=== PATIENT | male | born 2000 | race Caucasian/White ===

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

== ENCOUNTER 2019-04-07 19:48 | Emergency (ER) | payer OTHER ==
[~2019-04-07] VITALS: Ht 177.8 cm; Wt 83.5 kg
[2019-04-07 19:50] VITALS: Ht 177.8 cm; Wt 83.5 kg
[2019-04-07 20:43] LABS: CALCIUM 8.9 mg/dL (8.5-10.1); CHLORIDE SERUM 103 mmol/L (98-107); CREATININE SERUM 0.8 mg/dL (0.7-1.3); GFR1 > 60 mL/min; GLUCOSE SERUM 109 mg/dL (74-106); PLATELET COUNT 224 x10^3mcL (130-400); POTASSIUM SERUM 3.8 mmol/L (3.5-5.1); RED CELL DISTRIBUTION WIDTH 12.9 % (11.5-14.5); SODIUM SERUM 137 mmol/L (136-145)
[2019-04-07 20:48] LABS: ALBUMIN 4.1 g/dL (3.4-5.0); ALKALINE PHOSPHATASE 81 U/L (46-116); ALT/SGPT 20 U/L (16-63); AST/SGOT 20 U/L (15-37); BILIRUBIN TOTAL 0.7 mg/dL (0.20-1.00); LIPASE 86 IU/L (73-393); TOTAL PROTEIN, SERUM 7.9 g/dL (6.4-8.2)
[2019-04-07 21:29] VITALS: BP 148/91
== END 2019-04-07 21:29 | disposition home or self-care (01) ==
LOC: ED 19:48
PROVIDERS: Emergency Medicine
DX: K29.70 Gastritis, unspecified, without bleeding (principal)
CPT/HCPCS: 36415

== ENCOUNTER 2019-05-15 11:39 | Emergency (ER) | payer SELFPAY ==
[~2019-05-15] VITALS: Ht 177.8 cm; Wt 82.6 kg
[2019-05-15 12:05] VITALS: Ht 177.8 cm; Wt 82.6 kg
[2019-05-15 13:42] VITALS: BP 142/85
== END 2019-05-15 13:42 | disposition home or self-care (01) ==
LOC: ED 11:39
DX: L02.415 Cutaneous abscess of right lower limb (principal)
CPT/HCPCS: J2001; J2270; Q0162

== ENCOUNTER 2019-05-17 17:50 | Emergency (ER) | payer SELFPAY ==
[~2019-05-17] VITALS: Ht 177.8 cm; Wt 86.2 kg
[2019-05-17 18:02] VITALS: Ht 177.8 cm; Wt 86.2 kg
== END 2019-05-17 18:49 | disposition home or self-care (01) ==
LOC: ED 17:50
DX: L02.415 Cutaneous abscess of right lower limb (principal)